=== PATIENT | male | born 1965 | race Caucasian/White ===

== ENCOUNTER 2023-12-06 16:37 | Emergency (ER) | payer SELFPAY ==
[2023-12-06] MEDS ORDERED: EPINEPHrine 1:10,000 1 MG/10 ML Syringe IV ONE (16:38)
[2023-12-06] MEDS ORDERED: Calcium Chloride 10% 1 GM/10 ML Syringe IV ONE (16:38)
[2023-12-06] MEDS ORDERED: Sodium Bicarbonate 8.4% 50 MEQ/50 ML Syringe IV ONE (16:38)
[2023-12-06] MEDS ORDERED: Calcium Chloride 10% 1 GM/10 ML Syringe ONE (22:53)
[2023-12-06] MEDS ORDERED: Sodium Bicarbonate 8.4% 50 MEQ/50 ML Syringe ONE (22:53)
[2023-12-06] MEDS ORDERED: EPINEPHrine 1:10,000 1 MG/10 ML Syringe ONE (22:54)
== END 2023-12-06 16:58 | disposition expired ==
LOC: DL.ED 16:37
DX: I46.9 Cardiac arrest, cause unspecified (principal)
CPT/HCPCS: 31500; 92950; 99285; 99285-25; J0171; J3490